=== PATIENT | female | born 1995 | race Caucasian/White ===

== ENCOUNTER 2019-01-10 13:26 | Inpatient (IN) | payer OTHER, MEDICAID ==
[2019-01-10 14:39] LABS: RUPTURE FETAL MEMBRANES NEGATIVE (NEGATIVE)
[2019-01-10] MEDS ORDERED: MISOPROSTOL 200 MCG TAB PR (16:00)
[2019-01-10] MEDS ORDERED: LIDOCAINE 1% (MPF) 30 ML INJ INJ (16:00)
[2019-01-10] MEDS ORDERED: CARBOPROST 250 MCG INJ IM (16:00)
[2019-01-10] MEDS ORDERED: METHYLERGONOVINE 0.2 MG INJ IM (16:00)
[2019-01-10] MEDS ORDERED: OXYTOCIN 30 UNITS/LR 500 ML IV (16:00)
[2019-01-10] MEDS ORDERED: IBUPROFEN 600 MG TAB PO (16:00)
[2019-01-10 16:28] LABS: ADD MAN DIFF? NO
[2019-01-10] MEDS: LACTATED RINGER'S 1,000 ML IV ×2 (16:28→23:11)
[2019-01-10 16:33] LABS: BASOPHILS % 0.4 % (0.0-2.0); EOSINOPHILS # 0.3 10^3/ul (0.0-0.5); EOSINOPHILS % 2.6 % (0.0-7.0); HEMOGLOBIN 11.2 g/dl (12.0-16.0); LYMPHOCYTES # 2.6 10^3/ul (0.8-2.9); LYMPHOCYTES % 24.2 % (15.0-51.0); MEAN CORPUSCULAR HEMOGLOBIN 27.7 pg (29.0-33.0); MEAN CORPUSCULAR VOLUME 86.6 fl (82.0-101.0); MEAN PLATELET VOLUME 12.4 fl (7.4-10.4); MONOCYTE # 0.7 10^3/ul (0.3-0.9); MONOCYTES % 6.7 % (0.0-11.0); NEUTROPHILS % 65.4 % (39.0-77.0); PLATELET COUNT 217 10^3/UL (140-415); RED BLOOD COUNT 4.04 10^6/ul (4.20-5.40); RED CELL DISTRIBUTION WIDTH 13.6 % (11.5-14.5)
[2019-01-10 16:33] LABS: WHITE BLOOD COUNT 10.7 10^3/ul (4.8-10.8)
[2019-01-10 16:52] LABS: PROTIME 12.3 Sec (11.9-14.9)
[2019-01-10] MEDS: OXYTOCIN 30 UNITS/LR 500 ML IV (17:44)
[2019-01-10 18:57] LABS: RAPID PLASMA REAGIN NONREACTIVE (NR)
[2019-01-11] MEDS: BUTORPHANOL 2 MG INJ IV (02:51)
[2019-01-11] MEDS: LACTATED RINGER'S 1,000 ML IV (04:18)
[2019-01-11] MEDS: OXYTOCIN 30 UNITS/LR 500 ML IV ×3 (06:24→12:32)
[2019-01-11] MEDS ORDERED: ACETAMINOPHEN 325 MG TAB PO (09:00)
[2019-01-11] MEDS ORDERED: LANOLIN HPA 1 PKT TOP (09:00)
[2019-01-11] MEDS ORDERED: WITCH HAZEL/GLYCERIN PAD PR (09:00)
[2019-01-11] MEDS ORDERED: ONDANSETRON 4 MG INJ IV (09:00)
[2019-01-11] MEDS ORDERED: NACL 0.9% 3 ML SYG IV (09:00)
[2019-01-11] MEDS ORDERED: METHYLERGONOVINE 0.2 MG INJ IM (09:00)
[2019-01-11] MEDS ORDERED: HYDROCODONE/APAP (5/325) TAB PO (09:00)
[2019-01-11] MEDS ORDERED: OXYTOCIN 30 UNITS/LR 500 ML IV (09:00)
[2019-01-11] MEDS ORDERED: CARBOPROST 250 MCG INJ IM (09:00)
[2019-01-11] MEDS ORDERED: MISOPROSTOL 200 MCG TAB PR (09:00)
[2019-01-11] MEDS ORDERED: DIPHENHYDRAMINE 25 MG CAP PO (09:00)
[2019-01-11] MEDS: SENNA/DOCUSATE NA (8.6MG/50MG) TAB PO ×2 (09:41→21:00)
[2019-01-11 10:27] LABS: HEMATOCRIT 34.8 % (37.0-47.0); HEMOGLOBIN 11.2 g/dl (12.0-16.0)
[2019-01-11] MEDS: IBUPROFEN 600 MG TAB PO ×3 (12:09→23:51)
[2019-01-11] MEDS ORDERED: ZOLPIDEM 5 MG TAB PO (21:00)
[2019-01-12] MEDS: IBUPROFEN 600 MG TAB PO ×3 (05:44→18:02)
[2019-01-12] MEDS: SENNA/DOCUSATE NA (8.6MG/50MG) TAB PO ×2 (09:17→21:27)
[2019-01-13] MEDS: IBUPROFEN 600 MG TAB PO ×3 (00:19→12:27)
[2019-01-13] MEDS: SENNA/DOCUSATE NA (8.6MG/50MG) TAB PO (09:31)
[2019-01-13] MEDS: MEASLES,MUMPS,RUBELLA VACCINE INJ SC* (13:59)
== END 2019-01-13 15:30 | disposition home or self-care (01) | DRG 807 ==
LOC: OBT 13:26 → PP1 01-11 08:34 → L-D 13:27 → OBT 15:51 → L-D 15:51
PROVIDERS: Specialist
PROC: 10D07Z8 Extraction of Products of Conception, Other, Via Natural or Artificial Opening (ICD-10-PCS; principal; 2019-01-11)
PROC: 0KQM0ZZ Repair Perineum Muscle, Open Approach (ICD-10-PCS; 2019-01-11)
PROC: 0UQMXZZ Repair Vulva, External Approach (ICD-10-PCS; 2019-01-11)
PROC: 10907ZC Drainage of Amniotic Fluid, Therapeutic from Products of Conception, Via Natural or Artificial Opening (ICD-10-PCS; 2019-01-11)
DX: O41.03X0 Oligohydramnios, third trimester, not applicable or unspecified (principal); Z37.0 Single live birth; Z3A.40 40 weeks gestation of pregnancy; O70.1 Second degree perineal laceration during delivery; O69.1XX0 Labor and delivery complicated by cord around neck, with compression, not applicable or unspecified
CPT/HCPCS: 76815; 76818; 84112; 85014; 85018; 85025; 85610; 85730; 86592; 86850; 86900; 86901; 99464